=== PATIENT | female | born 1945 | race African-American/Black ===

== ENCOUNTER 2016-11-12 10:58 | Emergency (ER) | payer MEDICARE, BC ==
[~2016-11-12] VITALS: Ht 154.9 cm; Wt 88.5 kg
--- NOTE | ~2016-11-12 | CR63 ---
[facility] A Service of [facility] & [facility] RADIOLOGY TEXT RESULTS PATIENT: STALIN HOLDEN LOCATION: [facility] : 49 UNIT #: [id number] AGE: [address]: Yrn Mcgraw MD SEX: F ORDER DR: [id number] [facility] [address] [place], [place] [address] [id number] P MR#: [id number] Acc #: [id number] NAME: STALIN ANTONY : 1945 SEX: F STUDY DATE/TIME: 11/12/2016 11:58 UNIT: [facility] ROOM: STUDY DESCRIPTION: CR Chest 2 View Attending Physician: Yrn Mcgraw M.D. Ordering Physician: Yrn Mcgraw M.D. MEDICAL IMAGING REPORT This report is preliminary unless electronic signature is present EXAM Chest PA and lateral, 11/12/2016 HISTORY Cough for 2 weeks. Benign essential hypertension and diabetes, asthma, COPD. FINDINGS Two views of the chest were obtained. The lungs are clear. The heart and mediastinum have a normal contour, and the heart size is normal. No pleural effusions are seen. The lungs are hyperinflated, consistent with chronic obstructive pulmonary disease. There is no evidence of active disease. IMPRESSION Chronic obstructive pulmonary disease. No active disease. Dictated by... Trent Melendrez M.D. THIS IS AN ELECTRONICALLY VERIFIED REPORT Trent Melendrez M.D. at 11/13/2016 10:35 AM AMARJIT/ambika TD: 11/12/2016 12:13 JOB #: [id number] MEDICAL IMAGING REPORT Page 1 of 1 COPY
== END 2016-11-12 12:57 | disposition home or self-care (01) ==
LOC: CED 10:58 → EDBD 10:58 → CED 12:40
DX: R05 Cough (principal); R06.2 Wheezing; J44.9 Chronic obstructive pulmonary disease, unspecified; E11.9 Type 2 diabetes mellitus without complications; I10 Essential (primary) hypertension; Z88.8 Allergy status to other drugs, medicaments and biological substances
CPT/HCPCS: 71020; 99283